=== PATIENT | male | born 1990 | race Two or more races ===

== ENCOUNTER 2018-11-01 14:31 | Emergency (ER) | payer SELFPAY ==
[~2018-11-01] VITALS: Ht 175.3 cm; Wt 101.4 kg
[2018-11-01] MEDS ORDERED: DIPHTH,PERTUSS(ACELL),TET TOX 0.5 ML DISP.SYRIN. VAX IM ONE (15:00)
[2018-11-01] MEDS ORDERED: HYDROcodone/APAP 5/325MG 1 TAB TABLET PO ONE (15:00)
--- NOTE | 2018-11-01 15:25 | RAD ---
FINGER(S) LEFT History: IMPALEMENT OF DISTAL PHALANGE OF SECOND DIGIT OF LEFT HAND
. Comparison: None are available There is a nail extending through the distal second finger and extending through the bone of the distal phalanx. No evidence of dislocation. Remainder of visualized bones are intact. IMPRESSION: Metallic nail impales the distal left finger extending through the distal phalanx. Electronically signed by: Jamison Felix MD (11/01/2018 3:22 PM) [id number]
[2018-11-01] MEDS ORDERED: NAPR-683 PO (15:51)
[2018-11-01] MEDS ORDERED: CIPR250T30 PO (15:51)
--- NOTE | 2018-11-01 15:51 | PHYS DOC ---
Past History Past Medical History: No Pertinent History Past Surgical History: No Surgical History Smoking: Non-smoker Alcohol Use: Occasionally Drug Use: None Adult General Chief Complaint Chief Complaint: FINGER INJURY HPI HPI Patient is a 28 year old right handed [place]er speaking male who presents with complaining of injury to left index finger. Patient states he was using a nail gun and punched left index finger accidentally and a nail stuck in his left index finger and was not able to remove the nail. Patient rated his pain 8/10 and denies other injuries. Patient is not up-to-date with tetanus immunization. Review of Systems Review of Systems Constitutional: Denies fever or chills [] Eyes: Denies change in visual acuity, redness, or eye pain [] HENT: Denies nasal congestion or sore throat [] Respiratory: Denies cough or shortness of breath [] Cardiovascular: No additional information not addressed in HPI [] GI: Denies abdominal pain, nausea, vomiting, bloody stools or diarrhea [] : Denies dysuria or hematuria [] Musculoskeletal: Denies back pain, reports joint pain [] Integument: Denies rash or skin lesions [] Neurologic: Denies headache, focal weakness or sensory changes [] Endocrine: Denies polyuria or polydipsia [] All other systems were reviewed and found to be within normal limits, except as documented in this note. Current Medications Current Medications Current Medications Medications (Trade) Dose Ordered Sig/[facility] Start Time Stop Time Status Last Admin Dose Admin Acetaminophen/ Hydrocodone Bitart (Lortab 5/325) 1 tab 1X ONCE 11/01/18 15:00 11/01/18 15:01 DC Diphtheria/ Tetanus/Acell Pertussis (Boostrix) 0.5 ml ONCE ONCE 11/01/18 15:00 11/01/18 15:01 DC Allergies Allergies Allergies Coded Allergies Type Severity Reaction Last Updated Verified No Known Drug Allergies 11/01/18 No Physical Exam Physical Exam Constitutional: Well developed, well nourished, mild distress, non-toxic appearance. [] HENT: Normocephalic, atraumatic Eyes: PERRLA, EOMI, conjunctiva normal, no discharge. [] Neck: Normal range of motion, no tenderness, supple, no stridor. [] Cardiovascular:Heart rate regular rhythm, no murmur [] Lungs & Thorax: Bilateral breath sounds clear to auscultation [] Skin: Warm, dry, no erythema, no rash. [] Back: No tenderness, no CVA tenderness. [] Extremities: Left hand with a glove in place and a large nail stuck in distal phalanx of intake finger passing through the nailbed with about 2 inches of metal nail outside of nailbed, ROM intact, no edema. [] Neurologic: Alert and oriented X 3, normal motor function, normal sensory function, no focal deficits noted. [] Psychologic: Affect normal, judgement normal, mood normal. [] Current Patient Data Vital Signs Vital Signs Date Time Temp Pulse Resp B/P (MAP) Pulse Ox O2 Delivery O2 Flow Rate FiO2 11/01/18 14:31 99.3 117 18 96 Room Air EKG EKG [] Radiology/Procedures Radiology/Procedures [] Course & Med Decision Making Course & Med Decision Making Pertinent Labs and Imaging studies reviewed. (See chart for details) [] Dragon Disclaimer Dragon Disclaimer This electronic medical record was generated, in whole or in part, using a voice recognition dictation system. Foreign Body Removal Procedure Indication: Left index finger foreign body Procedure: The area of the foreign body was irrigated with normal saline and distal part of metal nail was cut and after digital block and local anesthesia with 2% lidocaine remaining part of the metal nail was removed from volar side of distal phalanx of index finger was [ANESTHESIA:]. After the procedure dressing was applied]. The patient's tetanus status was not up-to-date and he received tetanus in ER. The patient tolerated the procedure well. Complications: none Departure Departure: Impression: Primary Impression: Foreign body finger Additional Impression: Puncture wound of skin from metal nail Disposition: HOME, SELF-CARE (at 1547) Condition: IMPROVED Referrals: PCP,NO (PCP) Patient Instructions: Puncture Wound Additional Instructions: Kee[place] wound clean and dry Follow-up with your primary care physician in 3-5 days Return to ER if not getting better Scripts Naproxen (NAPROSYN) 500 Mg Tablet 500 MG PO BID for pain, #20 TAB Prov: KELLY NOGUEIRA MD 11/01/18 Ciprofloxacin Hcl (CIPRO) 250 Mg Tablet 1 TAB PO BID for urinary tract infection, #14 TAB Prov: KELLY NOGUEIRA MD 11/01/18 Problem Qualifiers KELLY NOGUEIRA MD Nov 01, 2018 15:51
[2018-11-01 16:00] VITALS: BP 137/92
--- NOTE | 2018-11-01 16:06 | RAD ---
3 view study of the index finger of the left hand Clinical indications: Shot finger with a roof nail gun. Post nail removal. COMPARISON: Earlier same day. FINDINGS: No acute fracture or dislocation or osteolytic lytic process is seen. The previously seen metallic nail within the distal aspect of the second digit has been removed. IMPRESSION: No acute fracture. Electronically signed by: Ziyad Vergara MD (11/01/2018 4:02 PM) [id number]
== END 2018-11-01 15:59 | disposition home or self-care (01) ==
LOC: ER 14:31
DX: S61.241A Puncture wound with foreign body of left index finger without damage to nail, initial encounter (principal); W29.4XXA Contact with nail gun, initial encounter; Y93.89 Activity, other specified; Y92.89 Other specified places as the place of occurrence of the external cause; Y99.8 Other external cause status
CPT/HCPCS: 64450; 73140; 90471; 90715; 99284-25